=== PATIENT | female | born 1955 | race African-American/Black ===

== ENCOUNTER 2017-06-26 07:05 | Day surgery (SDC) | payer OTHER ==
[~2017-06-26] VITALS: Ht 157.5 cm; Wt 90.0 kg
[~2017-06-26 07:05] MED LIST: ALPR1TAB7 PO; ASPI-449 PO; BUPR100; ESCI10TA PO; METO25; [UNRECOGNIZED DRUG - CODE] PO
[2017-06-26] MEDS ORDERED: BENZOCAINE 20% 50 MCG/SPRAY 57 GM TP ONE (07:06)
[2017-06-26] MEDS ORDERED: ALBUTEROL SULFATE 2.5 MG/0.5 ML NEB SOLUTION NEB ONE (07:06)
[2017-06-26] MEDS ORDERED: LIDOCAINE HCL 2% 5 ML JELLY TP ONE (07:06)
[2017-06-26] MEDS ORDERED: LIDOCAINE HCL 4% 50 ML SOLUTION TP ONE (07:06)
[2017-06-26] MEDS ORDERED: SODIUM CHLORIDE 0.9% 1,000 ML IV ONE ×2 (07:18→07:45)
[2017-06-26] MEDS ORDERED: CARV3.1262 PO (07:44)
[2017-06-26] MEDS ORDERED: FLUT16H NASAL (07:44)
[2017-06-26] MEDS ORDERED: ALBU8.5H8 IH (07:44)
[2017-06-26] MEDS ORDERED: BECL8.7A7 IH (07:44)
[2017-06-26] MEDS ORDERED: MIDAZOLAM HCL 2 MG/2 ML VIAL ONE (07:50)
[2017-06-26] MEDS ORDERED: FentaNYL CITRATE-PF 100 MCG/2 ML VIAL ONE (07:51)
[2017-06-26] MEDS ORDERED: MethylPREDNISolone SOD SUCC 125 MG/2 ML VIAL IVP ONE (09:15)
[2017-06-26] MEDS ORDERED: MethylPREDNISolone SOD SUCC 125 MG/2 ML VIAL ONE (09:28)
[2017-06-26] MEDS ORDERED: FLUMAZENIL 0.1 MG/ML 5 ML VIAL IVP ONE (09:49)
[2017-06-26] MEDS ORDERED: BUPR-93 PO (11:39)
[2017-06-26] MEDS ORDERED: OXYGEN THERAPY IH SCH (20:00)
== END 2017-06-26 11:05 | disposition home or self-care (01) ==
LOC: SURGERY 07:05
PROVIDERS: ATTEND Internal Medicine Critical Care Medicine
DX: J38.4 Edema of larynx (principal); B37.0 Candidal stomatitis; J84.111 Idiopathic interstitial pneumonia, not otherwise specified; J44.9 Chronic obstructive pulmonary disease, unspecified; I10 Essential (primary) hypertension; F32.9 Major depressive disorder, single episode, unspecified; F41.9 Anxiety disorder, unspecified; K21.9 Gastro-esophageal reflux disease without esophagitis; I25.2 Old myocardial infarction; Z98.890 Other specified postprocedural states; Z88.6 Allergy status to analgesic agent; Z88.8 Allergy status to other drugs, medicaments and biological substances; Z79.82 Long term (current) use of aspirin; Z79.899 Other long term (current) drug therapy
CPT/HCPCS: 31623; 31624; 71045; 87015; 87070; 87147; 87205; 87220; 88108; 88312; 93005 ×2; J2250; J2930; J3010; J3490; J7030

== ENCOUNTER 2018-03-31 06:22 | Day surgery (SDC) | payer OTHER ==
[~2018-03-31] VITALS: Ht 157.5 cm; Wt 93.6 kg
[~2018-03-31 06:22] MED LIST changes: +ALBU8.5H8 IH; +BECL8.7A7 IH; +BUPR-93 PO; -BUPR100; +CARV3.1262 PO; +FLUT16H NASAL; -METO25
[2018-03-31] MEDS ORDERED: BENZOCAINE 20% 50 MCG/SPRAY 57 GM TP ONE (06:23)
[2018-03-31] MEDS ORDERED: LIDOCAINE 2% 30 ML JELLY TP ONE (06:23)
[2018-03-31] MEDS ORDERED: LIDOCAINE 4% 50 ML SOLUTION TP ONE (06:23)
[2018-03-31] MEDS ORDERED: ALBUTEROL SULFATE 2.5 MG/0.5 ML NEB SOLUTION NEB ONE (06:23)
[2018-03-31] MEDS ORDERED: SODIUM CHLORIDE 0.9% 1,000 ML IV ONE ×2 (06:30→06:43)
[2018-03-31] MEDS ORDERED: ACYC400T PO (07:31)
[2018-03-31] MEDS ORDERED: MIDAZOLAM HCL 2 MG/2 ML VIAL ONE (07:53)
[2018-03-31] MEDS ORDERED: FentaNYL CITRATE-PF 100 MCG/2 ML VIAL ONE (07:54)
[2018-03-31] MEDS ORDERED: MethylPREDNISolone SOD SUCC 125 MG/2 ML VIAL IVP ONE (08:30)
[2018-03-31] MEDS ORDERED: MethylPREDNISolone SOD SUCC 125 MG/2 ML VIAL ONE (08:38)
[2018-03-31] MEDS ORDERED: OXYGEN THERAPY IH SCH (20:00)
== END 2018-03-31 09:45 | disposition home or self-care (01) ==
LOC: SURGERY 06:22
PROVIDERS: ATTEND Internal Medicine Critical Care Medicine
DX: J38.4 Edema of larynx (principal); J98.09 Other diseases of bronchus, not elsewhere classified; J98.8 Other specified respiratory disorders; J44.9 Chronic obstructive pulmonary disease, unspecified; I11.0 Hypertensive heart disease with heart failure; I50.9 Heart failure, unspecified; I25.2 Old myocardial infarction; F32.9 Major depressive disorder, single episode, unspecified; Z79.82 Long term (current) use of aspirin; Z88.5 Allergy status to narcotic agent; Z79.891 Long term (current) use of opiate analgesic; Z90.89 Acquired absence of other organs; Z98.890 Other specified postprocedural states; Z79.899 Other long term (current) drug therapy; Z88.8 Allergy status to other drugs, medicaments and biological substances
CPT/HCPCS: 31623; 31624; 71045; 87015; 87070; 87077; 87186; 87205; 87206; 87220; 88108; 88312; J2250; J2930; J3010; J7030

== ENCOUNTER 2019-03-03 18:23 | Emergency (ER) | payer OTHER ==
[~2019-03-03] VITALS: Ht 157.5 cm; Wt 80.0 kg
[~2019-03-03 18:23] MED LIST changes: +ACYC400T PO; -CARV3.1262 PO; -[UNRECOGNIZED DRUG - CODE] PO
[2019-03-03 19:05] VITALS: BP 149/91
[2019-03-03] MEDS ORDERED: HYDR25TA PO (19:21)
[2019-03-03] MEDS ORDERED: BUDE180H IH (19:21)
[2019-03-03] MEDS ORDERED: DIPR15O TP (19:21)
[2019-03-03] MEDS ORDERED: ERGO500014 PO (19:21)
[2019-03-03] MEDS ORDERED: MONT10TA21 PO (19:21)
[2019-03-03] MEDS ORDERED: AUD NEB (19:21)
[2019-03-03] MEDS ORDERED: DICL2100G TP (19:21)
[2019-03-03] MEDS ORDERED: OMEP20 PO (19:21)
[2019-03-03] MEDS ORDERED: ESCI20TA PO (19:21)
[2019-03-03] MEDS ORDERED: ACET-2247 PO (19:21)
[2019-03-03] MEDS ORDERED: ALBU8.5H8 IH (19:21)
[2019-03-03] MEDS ORDERED: CARV6 PO (19:21)
[2019-03-03] MEDS ORDERED: IBUP-2071 PO (19:21)
[2019-03-03] MEDS ORDERED: BUME1TAB34 PO (19:21)
[2019-03-03 19:33] LABS: BASOPHILS % (AUTO) 0.4 % (0.0-2.0); EOSINOPHILS % (AUTO) 0.6 % (1.0-6.0); HEMATOCRIT 36.4 % (36-46); HEMOGLOBIN 11.9 g/dL (12.0-16.0); LYMPHOCYTES # (AUTO) 1.5 K/uL (1.0-4.8); LYMPHOCYTES % (AUTO) 22.9 % (22.0-44.0); MEAN CORPUSCULAR HEMOGLOBIN 26.5 pg (26.0-34.0); MEAN CORPUSCULAR HGB CONC 32.7 G/dL (31.0-37.0); MEAN CORPUSCULAR VOLUME 81 fL (80-100); MONOCYTES # (AUTO) 0.7 K/uL (0.1-1.0); MONOCYTES % (AUTO) 10.5 % (2.0-9.0); NEUTROPHILS # (AUTO) 4.4 K/uL (1.8-7.7); NEUTROPHILS % (AUTO) 65.6 % (40.0-70.0); PLATELET COUNT (AUTO) 407 K/uL (150-450); RED BLOOD CELL COUNT(AUTO) 4.48 MIL/uL (4.00-5.20); RED CELL DISTRIBUTION WIDTH 17.5 % (11.5-14.5)
[2019-03-03 19:48] LABS: ANION GAP 10 mmol/L (8-16); CALCIUM, TOTAL 9.8 mg/dL (8.8-10.5); CARBON DIOXIDE 30 mmol/L (22-29); CHLORIDE 97 mmol/L (98-107); CREATININE 1.61 mg/dL (0.60-1.30); GLOMERULAR FILTR. RATE CALC 39 mL/min (>60); GLUCOSE,RANDOM 112 mg/dL (70-110); POTASSIUM 3.7 mmol/L (3.5-5.1); SODIUM SERUM 137 mmol/L (136-145); UREA NITROGEN, BLOOD 18 mg/dL (7-18)
[2019-03-03 19:53] LABS: ALANINE AMINOTRANSFERASE 11 U/L (12-78); ALBUMIN 4.5 g/dL (3.4-5.0); ALKALINE PHOSPHATASE 107 U/L (46-116); ASPARTATE AMINOTRANSFERASE 13 U/L (15-37); BILIRUBIN,TOTAL 0.4 mg/dL (0.1-1.0); TOTAL PROTEIN, SERUM 8.2 g/dL (6.4-8.2)
== END 2019-03-03 20:56 | disposition home or self-care (01) ==
LOC: EMS 18:24
DX: F32.9 Major depressive disorder, single episode, unspecified (principal); I11.0 Hypertensive heart disease with heart failure; I50.9 Heart failure, unspecified; J44.9 Chronic obstructive pulmonary disease, unspecified; F41.9 Anxiety disorder, unspecified; Z98.890 Other specified postprocedural states; Z79.899 Other long term (current) drug therapy; Z88.8 Allergy status to other drugs, medicaments and biological substances; Z88.5 Allergy status to narcotic agent
CPT/HCPCS: 36415; 80053; 85025; 99285; G0480

== ENCOUNTER 2020-02-22 05:56 | Day surgery (SDC) | payer OTHER ==
[~2020-02-22] VITALS: Ht 157.5 cm; Wt 95.0 kg
[~2020-02-22 05:56] MED LIST changes: +ACET-2865 PO; -ACYC400T PO; -ALPR1TAB7 PO; -ASPI-449 PO; +AUD NEB; -BECL8.7A7 IH; +BUDE180H IH; +BUME1TAB34 PO; -BUPR-93 PO; +CARV6 PO; +DICL2100G TP; +DIPR15O TP; +ERGO500014 PO; -ESCI10TA PO; +ESCI20TA87 PO; -FLUT16H NASAL; +HYDR-1475 PO; +IBUP-2071 PO; +MONT-35 PO; +OMEP20 PO
[2020-02-22] MEDS ORDERED: BENZOCAINE 20% 50 MCG/SPRAY 57 GM TP ONE (05:57)
[2020-02-22] MEDS ORDERED: LIDOCAINE 2% 30 ML JELLY TP ONE (05:57)
[2020-02-22] MEDS ORDERED: LIDOCAINE 4% 50 ML SOLUTION TP ONE (05:57)
[2020-02-22] MEDS ORDERED: ALBUTEROL SULFATE 2.5 MG/0.5 ML NEB SOLUTION NEB ONE (05:57)
[2020-02-22] MEDS ORDERED: SODIUM CHLORIDE 0.9% 1,000 ML IV ONE (06:00)
[2020-02-22] MEDS ORDERED: SODIUM CHLORIDE 0.9% 1,000 ML ONE (06:34)
[2020-02-22 06:49] LABS: COVID AG,FIA SOURCE NASOPHARYNGEAL
[2020-02-22] MEDS ORDERED: FentaNYL CITRATE-PF 100 MCG/2 ML VIAL ONE (08:12)
[2020-02-22] MEDS ORDERED: MIDAZOLAM HCL 2 MG/2 ML VIAL ONE (08:12)
[2020-02-22] MEDS ORDERED: MethylPREDNISolone SOD SUCC 125 MG/2 ML VIAL IVP ONE (09:00)
[2020-02-22] MEDS ORDERED: MethylPREDNISolone SOD SUCC 125 MG/2 ML VIAL ONE (09:12)
[2020-02-22] MEDS ORDERED: OXYGEN THERAPY IH SCH (20:00)
== END 2020-02-22 10:30 | disposition home or self-care (01) ==
LOC: SURGERY 05:56
PROVIDERS: ATTEND Internal Medicine Critical Care Medicine
DX: J38.4 Edema of larynx (principal); B37.0 Candidal stomatitis; J44.9 Chronic obstructive pulmonary disease, unspecified; I50.9 Heart failure, unspecified; I11.0 Hypertensive heart disease with heart failure; I25.10 Atherosclerotic heart disease of native coronary artery without angina pectoris; Z79.899 Other long term (current) drug therapy; Z20.828 Contact with and (suspected) exposure to other viral communicable diseases
CPT/HCPCS: 31623; 31624; 71045; 87015; 87070; 87077; 87101; 87186; 87205; 87206; 87220; 87426; 88108; 88312; C9803; J2250; J2930; J3010; J7030; J7613; Z7610

== ENCOUNTER 2021-11-04 05:13 | Day surgery (SDC) | payer OTHER ==
[~2021-11-04] VITALS: Ht 157.5 cm; Wt 78.6 kg
[~2021-11-04 05:13] MED LIST changes: +ACET-2247 PO; -ACET-2865 PO; +DICL100G51 TP; -DICL2100G TP; -HYDR-1475 PO; +HYDR-4870 PO; -OMEP20 PO
[2021-11-04] MEDS ORDERED: LIDOCAINE 2% 5 ML JELLY TP ONE (05:14)
[2021-11-04] MEDS ORDERED: LIDOCAINE 4% 50 ML SOLUTION TP ONE (05:14)
[2021-11-04] MEDS ORDERED: BENZOCAINE 20% 50 MCG/SPRAY 57 GM TP ONE (05:14)
[2021-11-04 06:34] LABS: COVID AG,FIA SOURCE NASOPHARYNGEAL
[2021-11-04] MEDS ORDERED: SODIUM CHLORIDE 0.9% 1,000 ML IV ONE (07:00)
[2021-11-04] MEDS ORDERED: FentaNYL CITRATE PF 100 MCG/2 ML VIAL ONE (07:41)
[2021-11-04] MEDS ORDERED: MIDAZOLAM HCL 5 MG/ML VIAL ONE (07:41)
[2021-11-04] MEDS ORDERED: MethylPREDNISolone SOD SUCC 125 MG/2 ML VIAL IVP ONE (09:00)
[2021-11-04] MEDS ORDERED: MethylPREDNISolone SOD SUCC 125 MG/2 ML VIAL ONE (09:18)
[2021-11-04] MEDS ORDERED: OXYGEN THERAPY IH SCH (20:00)
== END 2021-11-04 12:05 | disposition home or self-care (01) ==
LOC: SURGERY 05:13 → EDBD 05:13 → SURGERY 12:05
PROVIDERS: ATTEND Internal Medicine Critical Care Medicine
DX: J38.4 Edema of larynx (principal); B37.0 Candidal stomatitis; J44.9 Chronic obstructive pulmonary disease, unspecified; Z98.890 Other specified postprocedural states; Z79.899 Other long term (current) drug therapy
CPT/HCPCS: 31623; 31624; 71045; 87015; 87070; 87101; 87206; 87220; 87426; 88184; 88185; C9803; J2250; J2930; J3010; 88108; 88305; Z7610